=== PATIENT | male | born 1975 | race Caucasian/White ===

== ENCOUNTER 2019-11-25 12:04 | Emergency (ER) | payer SELFPAY ==
[~2019-11-25] VITALS: Ht 182.9 cm; Wt 98.9 kg
[2019-11-25 12:21] VITALS: Ht 182.9 cm; Wt 98.9 kg
[2019-11-25 15:35] VITALS: BP 120/70
== END 2019-11-25 15:35 | disposition home or self-care (01) ==
LOC: ED 12:04
DX: R05 Cough (principal); R42 Dizziness and giddiness; R53.1 Weakness
CPT/HCPCS: 82962